=== PATIENT | female | born 1935 | race Caucasian/White ===

== ENCOUNTER 2017-05-30 11:22 | Outpatient (CLI) | payer MEDICARE, OTHER ==
--- NOTE | 2017-05-31 17:39 | Mammography Report ---
DIGITAL SCREENING MAMMOGRAM: 05/30/2017 CLINICAL INDICATION: An 81-year-old with family history of breast cancer for screening. COMPARISON: 04/2016, 03/2015, 03/2014, 02/2013, 02/2012, 12/2010, 12/2009, 11/2008, 10/2008. TECHNIQUE: Routine CC and MLO projections were obtained of the breasts. FINDINGS: The breasts again demonstrate heterogeneously dense fibroglandular parenchyma bilaterally. Punctate, typically benign calcifications are present. There is a shifting pattern of circumscribe d nodules bilaterally, compatible with waxing and waning cysts. No suspicious masses, clustered micr ocalcifications, or regions of architectural distortion are identified. IMPRESSION: BENIGN FINDINGS. RECOMMENDATION: Routine annual screening unless otherwise clinically indicated. BI-RADS category 2, benign findings. STANDARD QUALIFYING STATEMENTS 1. This examination was reviewed with the aid of Computer-Aided Detection (CAD). 2. A negative or benign imaging report should not delay biopsy if clinically suspicious findings are present. Consider surgical consultation if warranted. More than 5% of cancers are not identified by i maging. 3. Dense breasts may obscure an underlying neoplasm. JOB #: [id number] EXT JOB #:[id number]
== END 2017-05-30 11:23 | disposition home or self-care (01) ==
LOC: DI.N 11:22
PROVIDERS: ATTEND Specialist
DX: Z12.31 Encounter for screening mammogram for malignant neoplasm of breast (principal)
CPT/HCPCS: 77067

== ENCOUNTER 2017-06-11 08:43 | Outpatient (CLI) | payer MEDICARE, OTHER ==
--- NOTE | 2017-06-11 20:07 | Ultrasound Report ---
EXAM: AORTIC DOPPLER ULTRASOUND EXAM DATE: 06/11/2017 09:12 a.m. CLINICAL HISTORY: Abdominal aortic aneurysm screening. Former smoker. History of hypertension, COPD, TIA. COMPARISON: CT abdomen/pelvis 03/27/2008. TECHNIQUE: Real-time sonographic imaging of retroperitoneal vascular structures, including color-flow , Doppler flow and spectral analysis was performed by the quality audit representative. Multiple logistics service representative static images were saved for review. FINDINGS: Normal caliber of the abdominal aorta. Calcified atherosclerotic plaque visualized. Aorta proximal: Transverse plane measurements: 1.7 x 1.8 cm. Aorta mid: Transverse plane measurements: 1.4 X 1.4 cm. Aorta distal: Transverse plane measurements: 1.2 X 1.1 cm. Right iliac: Transverse plane measurements: 0.6 X 0.6 cm. Left iliac: Transverse plane measurements: 0.6 X 0.6 cm. Doppler: Prox Aorta PSV: 67 cm/sec. Mid Aorta PSV: 72 cm/sec. Dist Aorta PSV: 95 cm/sec. Proximal RCIA PSV: 151 cm/sec, biphasic waveform. Proximal LCIA PSV: 165 cm/sec, biphasic waveform. Other: The IVC is patent. IMPRESSION: No abdominal aortic aneurysm. [facility] Referring Provider Line: [phone] SITE ID: [id number]
== END 2017-06-11 08:44 | disposition home or self-care (01) ==
LOC: DI 08:43
PROVIDERS: ATTEND Specialist
DX: Z13.6 Encounter for screening for cardiovascular disorders (principal)
CPT/HCPCS: 76706

== ENCOUNTER 2017-06-11 08:45 | Outpatient (CLI) | payer MEDICARE, OTHER ==
--- NOTE | 2017-06-11 20:57 | CT Report ---
EXAM: CT CHEST EXAM DATE: 06/11/2017 10:39 AM. CLINICAL HISTORY: COPD. COMPARISONS: None. TECHNIQUE: Routine helical CT imaging was performed through the chest. IV contrast: None. Reconstruct ions: Coronal and sagittal. In accordance with CT protocol optimization, one or more of the following dose reduction techniques w ere utilized for this exam: automated exposure control, adjustment of mA and/or KV based on patient s ize, or use of iterative reconstructive technique. FINDINGS: Lungs/Pleura: No effusions. Mild bronchiectasis. Airways wall thickening. Severe centrilobular and pa nlobular emphysema. Small amount of fibrotic change at the bases. Calcified pulmonary nodule in the m edial segment right lower lobe consistent with prior granulomatous infection. Possible small airway i mpaction in the superior segment right lower lobe. Mediastinum: Small amount of coronary artery atherosclerotic calcifications. Heart is normal in size. No pericardial effusion. No mediastinal lymphadenopathy. Calcified right hilar and mediastinal lymph nodes consistent with prior granulomatous infection. Bones: Thoracic spondylosis changes with lower thoracic levocurvature. Severe cervical spondylosis an d upper thoracic spondylosis. Visualized Abdomen: Low attenuating lesion in segment 5 measures less than 1 cm and is too small to c haracterize. Low attenuating lesion in segment 4B measures less than 1 cm and is too small to charact erize. Fluid attenuating cyst in segment 4A measuring 1.1 cm. Calcifications in the spleen consistent with prior granulomatous infection. Moderate pancreatic atrophy. Colonic diverticulosis. Large slidi ng-type hiatal hernia. Most of the stomach is herniated through the esophageal hiatus. Other: None. IMPRESSION: 1. Severe emphysema 2. Mild bronchiectasis [facility] Referring Provider Line: [phone] SITE ID: [id number]
== END 2017-06-11 08:46 | disposition home or self-care (01) ==
LOC: DI 08:45
PROVIDERS: ATTEND Specialist
DX: J43.9 Emphysema, unspecified (principal); J47.9 Bronchiectasis, uncomplicated; Z13.6 Encounter for screening for cardiovascular disorders
CPT/HCPCS: 71250; 76706

== ENCOUNTER 2017-07-03 09:11 | Outpatient (CLI) | payer MEDICARE, OTHER ==
[2017-07-03] MEDS ORDERED: ALBUTEROL NEB 2.5 MG/3 ML INH ONE (11:00)
== END 2017-07-03 09:12 | disposition home or self-care (01) ==
LOC: RT 09:11
PROVIDERS: ATTEND Physician Assistant
DX: R06.00 Dyspnea, unspecified (principal); J44.9 Chronic obstructive pulmonary disease, unspecified; Z87.891 Personal history of nicotine dependence
CPT/HCPCS: 93005; 94060; 94729; J7613

== ENCOUNTER 2017-12-22 14:30 | Outpatient (CLI) | payer MEDICARE, OTHER ==
--- NOTE | 2017-12-22 18:50 | XRAY Report ---
TWO VIEW CHEST: 12/22/2017 CLINICAL INDICATION: COPD, abnormal weight loss. COMPARISON: CT chest 06/11/2017, plain film 12/27/2015. FINDINGS: Frontal and lateral views of the chest demonstrate a normal cardiac silhouette. A moderate hiatal hernia is present. Extensive emphysema is present. No suspicious pulmonary nodule or mass lesion is seen. No effusion or pneumothorax is appreciated. IMPRESSION: EMPHYSEMA. HIATAL HERNIA. NO SUSPICIOUS PULMONARY NODULE OR MASS LESION. TD: 12/22/2017 18:49
== END 2017-12-22 14:31 | disposition home or self-care (01) ==
LOC: DI.N 14:30
PROVIDERS: ATTEND Family Medicine
DX: J43.9 Emphysema, unspecified (principal); K44.9 Diaphragmatic hernia without obstruction or gangrene
CPT/HCPCS: 71046

== ENCOUNTER 2018-06-28 09:31 | Outpatient (CLI) | payer MEDICARE, OTHER ==
--- NOTE | 2018-06-29 09:18 | Mammography Report ---
Procedure Date: 06/28/2018 Accession Number: [id number] / [id number] Procedure: MGN - Screening Mammo Dig Bilat CPT Code: FULL RESULT: EXAM: Screening Mammo Dig Bilat DATE: 06/28/2018 9:58 AM CLINICAL HISTORY: Family history of breast cancer. Routine screening TECHNIQUE: Bilateral CC and MLO views were obtained. COMPARISON: 05/30/2017, 05/04/2016, 04/02/2015, 03/18/2014, 02/27/2013 and 02/21/2012 FINDINGS: There are scattered fibroglandular densities. There is no significant interval change. No suspicious masses, clustered microcalcifications, or regions of architectural distortion are identified. Shifting pattern of circumscribed nodules bilaterally again noted, compatible with waxing and waning cysts. IMPRESSION: Benign findings RECOMMENDATION: Routine annual screening unless otherwise clinically indicated. BIRADS CATEGORY 2: Benign findings STANDARD QUALIFYING STATEMENTS: 1. This examination was reviewed with the aid of Computer-Aided Detection (CAD). 2. A negative or benign imaging report should not delay biopsy if clinically suspicious findings are present. Consider surgical consultation if warrented. More than 5% of cancers are not identified by imaging. 3. Dense breasts may obscure an underlying neoplasm.
== END 2018-06-28 09:32 | disposition home or self-care (01) ==
LOC: DI.N 09:31
PROVIDERS: ATTEND Family Medicine
DX: Z12.31 Encounter for screening mammogram for malignant neoplasm of breast (principal)
CPT/HCPCS: 77067

== ENCOUNTER 2019-07-19 10:06 | Outpatient (CLI) | payer MEDICARE, OTHER ==
--- NOTE | 2019-07-23 16:19 | Mammography Report ---
Reason: SCREENING MAMMO, SISTER WITH BREAST CA Procedure Date: 07/19/2019 Accession Number: [id number] / [id number] Procedure: MGN - Screening Mammo Dig Bilat CPT Code: FULL RESULT: EXAM: Screening Mammo Dig Bilat DATE: 07/19/2019 10:28 AM CLINICAL HISTORY: Routine screening, sister with breast cancer. TECHNIQUE: (B) - Bilateral CC and MLO views were obtained. COMPARISON: 06/28/2018, 05/30/2017, 05/04/2016 and 04/02/2015 PARENCHYMAL PATTERN: (D) - The breasts demonstrate heterogeneously dense fibroglandular parenchyma bilaterally. FINDINGS: No significant interval change. There are no suspicious masses, calcifications, or areas of distortion. A subcentimeter nodule in the 9:00 position right breast approximately 2.5 cm from the nipple is stable. IMPRESSION: Benign findings. BI-RADS category 2. RECOMMENDATION: (ANNUAL) - Recommend routine annual screening mammography. BI-RADS CATEGORY: (2) - Benign Findings. STANDARD QUALIFYING STATEMENTS: 1. This examination was not reviewed with the aid of Computer-Aided Detection (CAD). 2. A negative or benign imaging report should not preclude biopsy if clinically suspicious findings are present. 3. Dense breasts may obscure an underlying neoplasm. 4. This examination was reviewed without the aid of 3D breast imaging (tomosynthesis).
== END 2019-07-19 10:07 | disposition home or self-care (01) ==
LOC: DI.N 10:06
DX: Z12.31 Encounter for screening mammogram for malignant neoplasm of breast (principal); Z80.3 Family history of malignant neoplasm of breast
CPT/HCPCS: 77067

== ENCOUNTER 2021-02-21 11:33 | Emergency (ER) | payer MEDICARE, OTHER ==
[2021-02-21] MEDS ORDERED: METOCLOPRAMIDE 10 MG/2 ML VIAL IVP STA (11:51)
--- NOTE | 2021-02-21 11:54 | ED Physician Documentation ---
PD HPI FOCAL NEURO - Stated complaint Stated Complaint: MIGRAINES - Chief complaint Chief Complaint: Neuro - History obtained from History obtained from: Patient - Additional information Additional information: This is a vijay 85-year-old woman with history of migraines. She has had a fairly typical migraine since yesterday although what is atypical is how long it is lasted. Usually after a few hours and just taking Tylenol her migraines go away. It started yesterday with left-sided scotomata like a "zigzag" in her vision. Then developed a right-sided throbbing headache. There is no associ ated fevers, chills, neck stiffness. No nausea or light sensitivity. Review of Systems Constitutional: reports: Reviewed and negative Eyes: reports: Reviewed and negative Ears: reports: Reviewed and negative Nose: reports: Reviewed and negative PD PAST MEDICAL HISTORY - Past Medical History Cardiovascular: Hypertension Respiratory: COPD Endocrine/Autoimmune: HyPOthyroidism GI: GERD HEENT: None Psych: None Musculoskeletal: Osteoarthritis, Osteoporosis - Past Surgical History Past Surgical History: Yes General: Colonoscopy Ortho: Knee replacement HEENT: Cataracts Derm: Skin cancer surgery - Present Medications Home Medications: Ambulatory Orders Medication Instructions Recorded Confirmed Alendronate Sodium [Fosamax] 70 mg PO 09/08/13 12/27/15 Levothyroxine Sodium [Levothroid] 50 mcg PO DAILY 09/08/13 12/27/15 Simvastatin [Zocor] 20 mg PO HS 09/08/13 12/27/15 Verapamil HCl [Verelan] 120 mg PO DAILY 09/08/13 12/27/15 Clopidogrel [Plavix] 75 mg 12/27/15 12/27/15 Azithromycin [Zithromax] 250 mg PO DAILY #6 tablet 10/21/16 Meclizine [Antivert] 25 mg PO Q6H PRN #20 tablet 10/21/16 Ondansetron Odt [Zofran] 4 mg TL Q6H PRN #10 tablet 10/21/16 Mometasone Furoate [Nasonex] 1 spray NS BID #1 ml 02/21/21 SUMAtriptan [Imitrex] 25 mg PO BID PRN #10 tablet 02/21/21 - Allergies Allergies/Adverse Reactions: Allergies Allergy/AdvReac Type Severity Reaction Status Date / Time Sulfa (Sulfonamide Allergy Rash Verified 02/21/21 11:51 Antibiotics) - Social History Does the pt smoke?: No Smoking Status: Former smoker Does the pt drink ETOH?: No Does the pt have substance abuse?: No - Immunizations Immunizations are current?: Yes - POLST Patient has POLST: No PD ED PE NORMAL - Vitals Vital signs reviewed: Yes - General General: Alert and oriented X 3, No acute distress - HEENT HEENT: PERRL, EOMI, Other (No temporal artery tenderness, in fact she states bradley t it feels better when I am rubbing her temples.) - Neck Neck: Supple, no meningeal sign, No bony TTP - Neuro Neuro: Alert and oriented X 3, 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 The history is not consistent with temporal arteritis/giant cell arteritis. Nor is the physical. CT was done given her advanced age, suggestive of left sphenoid sinusitis. She has had a runny nose but no congestion, purulent drainage or fevers. As such I think antibiotics more likely to Harm than help. She was pain-free after IV Reglan here. 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 In the interim, return anytime if worse or if new symptoms develop.
--- NOTE | 2021-02-21 12:48 | CT Report ---
PROCEDURE: HEAD WO INDICATIONS: headache TECHNIQUE: Noncontrast 4.5 mm thick angled axial sections acquired from the foramen magnum to the vertex. For r adiation dose reduction, the following was used: automated exposure control, adjustment of mA and/or kV according to patient size. COMPARISON: None. FINDINGS: Image quality: Mild motion artifact somewhat limits evaluation. CSF spaces: Ventricles and extra-axial CSF spaces are mildly prominent consistent with age-related at rophy and extra-axial dilatation. Brain: No midline shift. No intracranial masses or hemorrhage. There is diffuse periventricular and white matter hypoattenuation with regions of encephalomalacia/remote infarct throughout the right pa rietal and posterior frontal reynolds radiata and centrum semiovale. Skull and face: Calvarium and visualized facial bones are intact, without suspicious lesions. Sinuses: Frothy attenuation and air fluid level is noted within the left sphenoid sinus. IMPRESSION: Chronic changes including diffuse microvascular ischemic changes and cerebral volume loss without maxwell dence of acute transcortical infarction or intracranial hemorrhage. Findings suggestive of acute sinusitis within the left sphenoid sinus. Reviewed by: Robi Tipton DO on 02/21/2021 11:47 AM GABBIE Approved by: Robi Tipton DO on 02/21/2021 11:47 AM GABBIE Station ID: [id number]
[2021-02-21 13:13] VITALS: BP 155/80
== END 2021-02-21 13:11 | disposition home or self-care (01) ==
LOC: ED 11:33
DX: G44.039 Episodic paroxysmal hemicrania, not intractable (principal); J01.30 Acute sphenoidal sinusitis, unspecified; I10 Essential (primary) hypertension; Z87.891 Personal history of nicotine dependence
CPT/HCPCS: 70450; 96374; 99284; J2765

== ENCOUNTER 2021-05-21 10:05 | Emergency (ER) | payer MEDICARE, OTHER ==
--- NOTE | 2021-05-21 12:05 | ED Physician Documentation ---
History of Present Illness - Stated complaint Stated Complaint: FOREIGN OBJECT IN THROAT - Chief complaint Chief Complaint: Abd Pain - History obtained from History obtained from: Patient, Friend - History of Present Illness Timing: Last night - Additonal information Additional information: 85-year-old female with a history of reflux esophagitis has had food get stuck previously she is always had a resolve by morning and she has been choking on her secretions all night long. She ate some pork last night and it got stuck then and she has been having to spit up her secretions.She has never had a dilation done and she has had problems with this for years.She has never had it last overnight previously. Review of Systems Constitutional: denies: Fever Eyes: denies: Decreased vision, Photophobia Ears: denies: Ear pain Nose: denies: Congestion Throat: denies: Sore throat Cardiac: denies: Chest pain / pressure Respiratory: denies: Cough GI: reports: Vomiting (Secretions are coming up.). denies: Abdominal Pain, Nausea : denies: Dysuria Skin: denies: Rash Musculoskeletal: denies: Neck pain, Back pain, Extremity pain Neurologic: denies: Generalized weakness, Focal weakness, Numbness, Difficulty speaking PD PAST MEDICAL HISTORY - Past Medical History Past Medical History: Yes Cardiovascular: Hypertension Respiratory: COPD Neuro: Migraines Endocrine/Autoimmune: HyPOthyroidism GI: GERD HEENT: None Psych: None Musculoskeletal: Osteoarthritis, Osteoporosis Other Past Medical History: swallowing difficulties - Past Surgical History Past Surgical History: Yes General: Colonoscopy Ortho: Knee replacement HEENT: Cataracts Derm: Skin cancer surgery - Present Medications Home Medications: Ambulatory Orders Medication Instructions Recorded Confirmed Alendronate Sodium [Fosamax] 70 mg PO 09/08/13 12/27/15 Levothyroxine Sodium [Levothroid] 50 mcg PO DAILY 09/08/13 12/27/15 Simvastatin [Zocor] 20 mg PO HS 09/08/13 12/27/15 Verapamil HCl [Verelan] 120 mg PO DAILY 09/08/13 12/27/15 Clopidogrel [Plavix] 75 mg 12/27/15 12/27/15 Azithromycin [Zithromax] 250 mg PO DAILY #6 tablet 10/21/16 Meclizine [Antivert] 25 mg PO Q6H PRN #20 tablet 10/21/16 Ondansetron Odt [Zofran] 4 mg TL Q6H PRN #10 tablet 10/21/16 Mometasone Furoate [Nasonex] 1 spray NS BID #1 ml 02/21/21 SUMAtriptan [Imitrex] 25 mg PO BID PRN #10 tablet 02/21/21 - Allergies Allergies/Adverse Reactions: Allergies Allergy/AdvReac Type Severity Reaction Status Date / Time Sulfa (Sulfonamide Allergy Rash Verified 05/21/21 10:18 Antibiotics) - Social History Does the pt smoke?: No Smoking Status: Never smoker Does the pt drink ETOH?: No Does the pt have substance abuse?: No - Immunizations Immunizations are current?: Yes - POLST Patient has POLST: No PD ED PE NORMAL - Vitals Vital signs reviewed: Yes (Tachycardic and hypertensive) - General General: Alert and oriented X 3, No acute distress, Well developed/nourished - HEENT HEENT: Atraumatic, PERRL, EOMI - Neck Neck: Supple, no meningeal sign, No bony TTP - Cardiac Cardiac: RRR, No murmur - Respiratory Respiratory: No respiratory distress, Clear bilaterally - Abdomen Abdomen: Normal bowel sounds, Soft, Non tender, Non distended, No organomegaly - Back Back: No CVA TTP, No spinal TTP - Derm Derm: Normal color, Warm and dry, No rash - Extremities Extremities: No deformity, No edema - Neuro Neuro: Alert and oriented X 3, 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, No motor deficit, No sensory deficit, Normal speech Eye Opening: Spontaneous Motor: Obeys Commands Verbal: Oriented GCS Score: 15 - Psych Psych: Normal mood, Normal affect Results - Vitals Vitals: Vital Signs - 24 hr 05/21/21 05/21/21 10:12 11:00 Temperature 36.6 C Heart Rate 110 H 90 Respiratory 16 Rate Blood Pressure 167/80 H O2 Saturation 98 Oxygen O2 Source [With Activity] Room air O2 Source [Without Activity] Room air O2 Source Room air PD MEDICAL DECISION MAKING - ED course Complexity details: considered differential, d/w patient, d/w family ED course: 85-year-old female with esophageal foreign body impaction lasting overnight appears uncomfortable when she arrives to the emergency department and she has been spitting up her secretions all night long. Here in the emergency department she is given a sip of a diet lemon igiugig soda with a lot of carbonation following that she has some increase in pain in her central chest and then has resolution of her symptoms. She is able to drink freely.I have encouraged the patient to seek consultation with GI to consider dilation. She is a bit reluctant. Departure - Departure Disposition: 01 Home, Self Care Clinical Impression: Impacted foreign body in esophagus Qualifiers: Encounter type: initial encounter Qualified Code(s): T18.108A - Unspecified foreign body in esophagus causing other injury, initial encounter Condition: Stable Instructions: ED Foreign Body Esophageal Rslv Follow-Up: Tenzin Su DO [Primary Care Provider] - Comments: Follow-up with Dr. Su regarding your symptoms of esophageal foreign body. A procedure done by a deputy sheriff generalist/bailiff is available to help with the symptoms. Talk to Dr. Su about a referral to gastroenterology.
[2021-05-21 12:48] VITALS: BP 155/80
== END 2021-05-21 12:48 | disposition home or self-care (01) ==
LOC: ED 10:05
DX: T18.108A Unspecified foreign body in esophagus causing other injury, initial encounter (principal); X58.XXXA Exposure to other specified factors, initial encounter; Y93.89 Activity, other specified; I10 Essential (primary) hypertension
CPT/HCPCS: 36415; 99281; 99282

== ENCOUNTER 2021-11-18 22:41 | Emergency (ER) | payer MEDICARE, OTHER ==
[2021-11-18] MEDS ORDERED: GLUCAGON 1 MG/ML VIAL IVP STA (22:55)
--- NOTE | 2021-11-18 23:06 | ED Physician Documentation ---
History of Present Illness - Stated complaint Stated Complaint: CHEST PX, VOMITING - History obtained from History obtained from: Patient - Additonal information Additional information: 85-year-old woman with past medical history of esophageal foreign body presents with sensation of the same tonight. Patient states that she turkey for dinner around 4 PM and since that time has had feeling of bolus in the throat deep down in the chest, inability to swallow liquids or solids, and vomiting every time she tries to eat. Denies nausea, diaphoresis, dizziness or other symptoms. Pain is generalized to the chest area. Denies shortness of breath. Review of Systems Ten Systems: 10 systems reviewed and negative Constitutional: denies: Fever, Chills Cardiac: reports: Chest pain / pressure. denies: Palpitations Respiratory: denies: Dyspnea, Cough GI: reports: Vomiting. denies: Abdominal Pain, Nausea PD PAST MEDICAL HISTORY - Past Medical History Cardiovascular: Hypertension Respiratory: COPD Neuro: Migraines Endocrine/Autoimmune: HyPOthyroidism GI: GERD HEENT: None Psych: None Musculoskeletal: Osteoarthritis, Osteoporosis - Past Surgical History Past Surgical History: Yes General: Colonoscopy Ortho: Knee replacement HEENT: Cataracts Derm: Skin cancer surgery - Present Medications Home Medications: Ambulatory Orders Medication Instructions Recorded Confirmed Levothyroxine Sodium [Levothroid] 50 mcg PO DAILY 09/08/13 05/21/21 Verapamil HCl [Verelan] 120 mg PO DAILY 09/08/13 05/21/21 Ascorbic Acid [Vitamin C] 1 tab DAILY 05/21/21 05/21/21 Aspirin [[place] Aspirin] 1 tab DAILY 05/21/21 05/21/21 Atorvastatin [Lipitor] 1 tab DAILY 05/21/21 05/21/21 Lisinopril [Zestril] 10 mg DAILY 05/21/21 05/21/21 Temazepam [Restoril] 30 mg DAILY 05/21/21 05/21/21 Tiotropium [place] [Spiriva] 1 cap DAILY 05/21/21 05/21/21 - Allergies Allergies/Adverse Reactions: Allergies Allergy/AdvReac Type Severity Reaction Status Date / Time Sulfa (Sulfonamide Allergy Rash Verified 05/21/21 10:18 Antibiotics) - Social History Does the pt smoke?: No Smoking Status: Never smoker Does the pt drink ETOH?: No Does the pt have substance abuse?: No - Immunizations Immunizations are current?: Yes - POLST Patient has POLST: No PD ED PE NORMAL - Vitals Vital signs reviewed: Yes - General General: Alert and oriented X 3, No acute distress, Well developed/nourished - HEENT HEENT: Atraumatic, PERRL, EOMI, Moist mucous membranes - Neck Neck: Supple, no meningeal sign - Cardiac Cardiac: RRR - Respiratory Respiratory: No respiratory distress, Clear bilaterally - Abdomen Abdomen: Non tender, Non distended - Derm Derm: Normal color, Warm and dry - Extremities Extremities: No deformity - Neuro Neuro: Alert and oriented X 3, No motor deficit, No sensory deficit - Psych Psych: Normal mood, Normal affect Results - Vitals Vitals: Vital Signs - 24 hr 11/18/21 11/18/21 11/19/21 22:45 23:39 00:00 Temperature 37 C Heart Rate 89 97 96 Respiratory 17 25 H 19 Rate Blood Pressure 176/76 H 192/93 H 135/58 H O2 Saturation 98 93 94 11/19/21 01:00 Temperature Heart Rate 86 Respiratory 21 Rate Blood Pressure 138/82 H O2 Saturation 93 Oxygen O2 Source [] Room air O2 Source [] Room air O2 Source Room air - EKG (time done) 2251 Rate: Rate (enter#) (93) Rhythm: NSR [place]: Normal Intervals: Normal [place] QRS: Normal Ischemia: Normal ST segments - Labs Labs: Laboratory Tests 11/18/21 11/18/21 11/18/21 22:58 22:58 22:58 WBC 9.8 RBC 4.83 Hgb 14.5 Hct 43.8 MCV 90.7 MCH 30.0 MCHC 33.1 RDW 14.6 Plt Count 365 MPV 9.6 Neut # (Auto) 7.2 H Lymph # (Auto) 1.5 [place] # (Auto) 1.0 Eos # (Auto) 0.1 Baso # (Auto) 0.1 Absolute Nucleated RBC 0.00 Nucleated RBC % 0.0 Sodium 135 Potassium 4.4 Chloride 100 L Carbon Dioxide 22 Anion Gap 13.0 BUN 18 Creatinine 1.0 Estimated GFR (MDRD) 53 L Glucose 131 H Calcium 9.8 Total Bilirubin 0.6 AST 30 ALT 25 Alkaline Phosphatase 82 Troponin I High Sens 4.8 Total Protein 8.0 Albumin 4.3 Globulin 3.7 Albumin/Globulin Ratio 1.2 Lipase 67 H PD MEDICAL DECISION MAKING - ED course ED course: 85-year-old woman presents with esophageal foreign body. Will trial glucagon, [employer]OCK[employer], soda which has worked for her in the past. 12pm - patient now tolerating oral nano. she initially spit up and had streaks of blood per manager staffing but is now pain free and sipping cola without difficulty. 2am - apparently patient spit up a small amount of cola but then was able to keep down a cup of water. she states her symptoms have now resolved and is requesting to go home. return precautions given. patient should f/u with her pmd for referral for possible endoscopy. Departure - Departure Disposition: 01 Home, Self Care Clinical Impression: Foreign body sensation in throat, Chest discomfort Condition: Good Instructions: ED Foreign Body Esophageal Rslv Follow-Up: Donn Ordoñez MD [Provider Admit Priv/Credential] - Comments: You were seen in the ED for evaluation of chest and throat discomfort. Glad you are feeling better! Please follow up with your primary doctor for referral for endoscopy. I am also enclosing a referral to Dr. Ordoñez, a surgeon here at [facility] who can do endoscopies. Depending on your insurance, you may be able to see her directly. Please return to the emergency department if you have further troubles with swallowing, or have any new or worsening symptoms or other concerns.
[2021-11-18 23:07] LABS: BASOPHILS # (AUTO) 0.1 10^3/uL (0.0-0.1); BASOPHILS % (AUTO) 0.6 %; EOSINOPHILS # (AUTO) 0.1 10^3/uL (0.0-0.7); EOSINOPHILS % (AUTO) 1.2 %; HCT - HEMATOCRIT 43.8 % (37.0-47.0); HGB - HEMOGLOBIN 14.5 g/dL (12.0-16.0); LYMPHOCYTES # (AUTO) 1.5 10^3/uL (1.5-3.5); LYMPHOCYTES % (AUTO) 14.8 %; MEAN CORPUSCULAR HGB CONC 33.1 g/dL (32.0-36.0); MEAN CORPUSCULAR VOLUME 90.7 fL (81.0-99.0); MEAN PLATELET VOLUME 9.6 fL (7.9-10.8); MONOCYTES % (AUTO) 10.2 %; NEUTROPHILS # (AUTO) 7.2 10^3/uL (1.5-6.6); NEUTROPHILS % (AUTO) 72.7 %; PLT - PLATELET COUNT 365 10^3/uL (130-450); RED BLOOD COUNT 4.83 10^6/uL (4.20-5.40); RED CELL DISTRIBUTION WIDTH 14.6 % (12.0-15.0); WHITE BLOOD COUNT 9.8 x10^3/uL (4.8-10.8)
--- NOTE | 2021-11-18 23:23 | XRAY Report ---
PROCEDURE: Chest 1 View X-Ray INDICATIONS: Chest Pain TECHNIQUE: One view of the chest was acquired. COMPARISON: 12/22/2017 FINDINGS: Surgical changes and devices: None. Lungs and pleura: Stable appearance of chronic diffuse interstitial coarsening likely related to chr onic obstructive pulmonary physiology/emphysema. No pleural effusions or pneumothorax. Lungs are quoc ar without focal airspace disease. Mediastinum: Mediastinal contours appear normal. Heart size is normal. Bones and chest wall: No suspicious bony lesions. Overlying soft tissues appear unremarkable. IMPRESSION: Stable examination of the chest. No acute cardiopulmonary abnormalities. Findings compatible with chr onic obstructive pulmonary physiology/emphysema. Reviewed by: Atul Campos MD on 11/18/2021 11:22 PM [facility] Approved by: Atul Campos MD on 11/18/2021 11:22 PM [facility] Station ID: [id number]
[2021-11-18 23:48] LABS: ALBUMIN 4.3 g/dL (3.2-5.5); ALBUMIN/GLOBULIN RATIO 1.2 (1.0-2.2); BILIRUBIN,TOTAL 0.6 mg/dL (0.2-1.0); CALCIUM 9.8 mg/dL (8.5-10.3); POTASSIUM 4.4 mmol/L (3.5-5.0)
[2021-11-19 02:09] VITALS: BP 138/75
== END 2021-11-19 02:29 | disposition home or self-care (01) ==
LOC: ED 22:41
DX: R09.89 Other specified symptoms and signs involving the circulatory and respiratory systems (principal); R07.89 Other chest pain; I10 Essential (primary) hypertension
CPT/HCPCS: 36415; 80053; 83690; 84484; 85025; 93005; 96374; 99284

== ENCOUNTER 2022-11-10 08:00 | Outpatient (CLI) | payer MEDICARE, OTHER | END 2022-11-10 23:59 | disposition home or self-care (01) | LOC: LAB.N 08:00 | PROVIDERS: ATTEND Physician Assistant | DX: R41.0 Disorientation, unspecified (principal) | CPT/HCPCS: 87086 ==

== ENCOUNTER 2022-11-29 08:07 | Outpatient (CLI) | payer MEDICARE, OTHER | END 2022-11-29 08:08 | disposition EMS.NT | LOC: EMS 08:07 | DX: R41.0 Disorientation, unspecified (principal) ==

== ENCOUNTER 2023-08-23 07:36 | Outpatient (CLI) | payer MEDICARE, OTHER | END 2023-08-23 23:59 | disposition critical access hospital (66) | LOC: EMS 07:36 | DX: R44.1 Visual hallucinations (principal) | CPT/HCPCS: A0425; A0429 ==

== ENCOUNTER 2023-08-23 07:55 | Emergency (ER) | payer MEDICARE, OTHER ==
--- NOTE | 2023-08-23 08:08 | ED Physician Documentation ---
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 Patient states that she saw people who were not there all throughout her house and it caused her to not be able to get any sleep. This morning she decided to call 911. EMS reports vital signs were within normal limits in route. Patient states she is currently taking Cipro for a urinary tract infection, but denies recent burning with urination or frequency. She states that "it was my son's idea" for her to be treated for urinary tract infection. She does not know how many days she has been on antibiotics. Denies pain. Review of Systems Constitutional: denies: Fever, Chills PD PAST MEDICAL HISTORY - Past Medical History Cardiovascular: Hypertension Respiratory: COPD Neuro: Migraines Endocrine/Autoimmune: HyPOthyroidism GI: GERD HEENT: None Psych: None Musculoskeletal: Osteoarthritis, Osteoporosis - Past Surgical History Past Surgical History: Yes General: Colonoscopy Ortho: Knee replacement HEENT: Cataracts Derm: Skin cancer surgery - Present Medications Home Medications: Ambulatory Orders Medication Instructions Recorded Confirmed Levothyroxine Sodium [Levothroid] 50 mcg PO DAILY 09/08/13 05/21/21 Verapamil HCl [Verelan] 120 mg PO DAILY 09/08/13 05/21/21 Ascorbic Acid [Vitamin C] 1 tab DAILY 05/21/21 05/21/21 Aspirin [[place] Aspirin] 1 tab DAILY 05/21/21 05/21/21 Atorvastatin [Lipitor] 1 tab DAILY 05/21/21 05/21/21 Lisinopril [Zestril] 10 mg DAILY 05/21/21 05/21/21 Temazepam [Restoril] 30 mg DAILY 05/21/21 05/21/21 Tiotropium [place] [Spiriva] 1 cap DAILY 05/21/21 05/21/21 - Allergies Allergies/Adverse Reactions: Allergies Allergy/AdvReac Type Severity Reaction Status Date / Time Sulfa (Sulfonamide Allergy Rash Verified 05/21/21 10:18 Antibiotics) - Social History Does the pt smoke?: No Smoking Status: Never smoker Does the pt drink ETOH?: No Does the pt have substance abuse?: No - Immunizations Immunizations are current?: Yes - POLST Patient has POLST: No Results - Vitals Vitals: Vital Signs - 24 hr 08/23/23 08:02 Temperature 36.4 C L Heart Rate 105 H Respiratory 28 H Rate Blood Pressure 195/99 H O2 Saturation 95 Oxygen O2 Source [With Activity] Room air O2 Source [Without Activity] Room air O2 Source Room air - Labs Labs: Laboratory Tests 08/23/23 08/23/23 08/23/23 08:13 08:13 08:13 WBC 7.6 RBC 4.46 Hgb 13.5 Hct 41.7 MCV 93.5 MCH 30.3 MCHC 32.4 RDW 14.6 Plt Count 295 MPV 9.9 Neut # (Auto) 4.5 Lymph # (Auto) 1.7 [place] # (Auto) 1.1 H Eos # (Auto) 0.2 Baso # (Auto) 0.1 Absolute Nucleated RBC 0.00 Nucleated RBC % 0.0 PT 10.6 INR 1.0 Sodium 138 Potassium 3.8 Chloride 107 Carbon Dioxide 25 Anion Gap 6.0 BUN 22 H Creatinine 1.1 Estimated GFR (MDRD) 47 L Glucose 96 Calcium 9.4 Total Bilirubin 0.4 AST 25 ALT 17 Alkaline Phosphatase 67 Total Protein 7.1 Albumin 4.0 Globulin 3.1 Albumin/Globulin Ratio 1.3 Urine Color Urine Clarity Urine pH Ur Specific [place] Urine Protein Urine Glucose (UA) Urine Ketones Urine Occult Blood Urine Nitrite Urine Bilirubin Urine Urobilinogen Ur Leukocyte Esterase Ur Microscopic Review Urine Culture Comments 08/23/23 08:57 WBC RBC Hgb Hct MCV MCH MCHC RDW Plt Count MPV Neut # (Auto) Lymph # (Auto) [place] # (Auto) Eos # (Auto) Baso # (Auto) Absolute Nucleated RBC Nucleated RBC % PT INR Sodium Potassium Chloride Carbon Dioxide Anion Gap BUN Creatinine Estimated GFR (MDRD) Glucose Calcium Total Bilirubin AST ALT Alkaline Phosphatase Total Protein Albumin Globulin Albumin/Globulin Ratio Urine Color YELLOW Urine Clarity CLEAR Urine pH 6.0 Ur Specific [place] 1.015 Urine Protein NEGATIVE Urine Glucose (UA) NEGATIVE Urine Ketones NEGATIVE Urine Occult Blood TRACE-INTA Urine Nitrite NEGATIVE Urine Bilirubin NEGATIVE Urine Urobilinogen 0.2 (NORMAL) Ur Leukocyte Esterase NEGATIVE Ur Microscopic Review NOT INDICATED Urine Culture Comments NOT INDICATED PD Medical Decision Making - ED course Complexity details: reviewed old records, reviewed results, re-evaluated patient, considered differential, d/w patient, d/w family ED course: Possible altered mental status and visual hallucinations. Patient denying any complaints at this time. I discussed patient's case with her son Jason, who states that at least once a year the patient gets a urinary tract infection and has to be admitted for IV antibiotics. He states that patient also has mild Alzheimer's disease that is gradually getting worse with more frequent outbursts ("like a kid you can't ground"). Patient at this time is calm and cooperative. Laboratory work is reviewed, no abnormalities identified. CT shows no acute findings, chest x-ray negative for acute process. Urinalysis negative for leukocyte esterase, nitrates, bacteria. Patient hemodynamically stable in the emergency department. Son states that "the test is wrong", and states that the urinary tract infection only shows up when the urine is cultured. I explained that the urine is negative for anything that would indicate a culture. He states that he is upset that the patient was brought to [facility] and not [facility], because [place] has all of her records. I explained that there is no indication for admission at this time. Discharged to care of son. Departure - Departure Disposition: 01 Home, Self Care Clinical Impression: Alzheimer disease Condition: Stable Instructions: ED Dementia Caregiver Support
[2023-08-23 08:20] LABS: BASOPHILS # (AUTO) 0.1 10^3/uL (0.0-0.1); BASOPHILS % (AUTO) 0.8 %; EOSINOPHILS # (AUTO) 0.2 10^3/uL (0.0-0.7); EOSINOPHILS % (AUTO) 2.6 %; HCT - HEMATOCRIT 41.7 % (37.0-47.0); HGB - HEMOGLOBIN 13.5 g/dL (12.0-16.0); LYMPHOCYTES # (AUTO) 1.7 10^3/uL (1.5-3.5); MEAN CORPUSCULAR HEMOGLOBIN 30.3 pg (27.0-31.0); MEAN CORPUSCULAR HGB CONC 32.4 g/dL (32.0-36.0); MEAN CORPUSCULAR VOLUME 93.5 fL (81.0-99.0); MEAN PLATELET VOLUME 9.9 fL (7.9-10.8); MONOCYTES # (AUTO) 1.1 10^3/uL (0.0-1.0); MONOCYTES % (AUTO) 14.3 %; NEUTROPHILS # (AUTO) 4.5 10^3/uL (1.5-6.6); NEUTROPHILS % (AUTO) 59.8 %; PLT - PLATELET COUNT 295 10^3/uL (130-450); RED BLOOD COUNT 4.46 10^6/uL (4.20-5.40); RED CELL DISTRIBUTION WIDTH 14.6 % (12.0-15.0); WHITE BLOOD COUNT 7.6 x10^3/uL (4.8-10.8)
--- NOTE | 2023-08-23 08:28 | XRAY Report ---
PROCEDURE: Chest 1 View X-Ray INDICATIONS: AMS TECHNIQUE: One view of the chest was acquired. COMPARISON: 11/18/2021. FINDINGS: Surgical changes and devices: None. Lungs and pleura: No pleural effusions or pneumothorax. Lungs are clear. Mediastinum: Mediastinal contours appear normal. Heart size is normal. Bones and chest wall: No suspicious bony lesions. Overlying soft tissues appear unremarkable. IMPRESSION: No acute cardiopulmonary process. Reviewed by: Patricio Barrios MD on 08/23/2023 8:26 AM PDT Approved by: Patricio Barrios MD on 08/23/2023 8:26 AM PDT Station ID: [id number]
[2023-08-23 08:34] LABS: ALBUMIN/GLOBULIN RATIO 1.3 (1.0-2.2); BILIRUBIN,TOTAL 0.4 mg/dL (0.2-1.0); CALCIUM 9.4 mg/dL (8.5-10.3); CREATININE 1.1 mg/dL (0.6-1.3); POTASSIUM 3.8 mmol/L (3.5-4.5); TOTAL PROTEIN 7.1 g/dL (6.4-8.9)
[2023-08-23 08:38] LABS: PT - PROTHROMBIN TIME 10.6 secs (9.9-12.6)
--- NOTE | 2023-08-23 09:04 | CT Report ---
PROCEDURE: HEAD WO INDICATIONS: AMS TECHNIQUE: Noncontrast 4.5 mm thick angled axial sections acquired from the foramen magnum to the vertex. For r adiation dose reduction, the following was used: automated exposure control, adjustment of mA and/or kV according to patient size. COMPARISON: 02/21/2021 FINDINGS: Image quality: Excellent. CSF spaces: Basal cisterns are patent. No extra-axial fluid collections. The ventricles are symmet martin in size and shape. Brain: No intracranial bleeds or masses. There is cerebral volume loss for age, with resultant vent ricular and sulcal prominence. There are periventricular and deep white matter chronic small vessel ischemic changes. There is intracranial internal carotid artery atherosclerosis. Skull and face: Calvarium and visualized facial bones appear intact, without suspicious lesions. Sinuses: Visualized sinuses and mastoids are clear. IMPRESSION: 1. No CT evidence of acute intracranial abnormalities. 2. No significant changes from previous study. Reviewed by: Patricio Barrios MD on 08/23/2023 9:03 AM PDT Approved by: Patricio Barrios MD on 08/23/2023 9:03 AM PDT Station ID: [id number]
[2023-08-23 09:10] LABS: BILIRUBIN,URINE NEGATIVE (NEGATIVE); CLARITY,URINE CLEAR (CLEAR); GLUCOSE, URINE (UA) NEGATIVE (NEGATIVE); KETONES,URINE (UA) NEGATIVE (NEGATIVE); LEUKOCYTE ESTERASE, URINE NEGATIVE (NEGATIVE); NITRITE,URINE NEGATIVE (NEGATIVE); OCCULT BLOOD,URINE TRACE-INTA (NEGATIVE); PROTEIN,URINE NEGATIVE (NEGATIVE); UROBILINOGEN,URINE 0.2 (NORMAL) E.U./dL (NORMAL)
[2023-08-23 10:49] VITALS: BP 172/78; O2SAT 100
== END 2023-08-23 10:59 | disposition home or self-care (01) ==
LOC: EDUNIT# → ED 07:55 → SUPCPDRO 07:55 → ED 10:59
DX: G30.9 Alzheimer's disease, unspecified (principal); F02.80 Dementia in other diseases classified elsewhere, unspecified severity, without behavioral disturbance, psychotic disturbance, mood disturbance, and anxiety
CPT/HCPCS: 36415; 80053; 81001; 81003; 85025; 85610; 87086; 93005; 99283; 99284

== ENCOUNTER 2023-10-20 09:06 | Outpatient (CLI) | payer MEDICARE, OTHER | END 2023-10-20 09:07 | disposition short-term general hospital (02) | LOC: EMS 09:06 | DX: R44.1 Visual hallucinations (principal); R06.4 Hyperventilation; R45.89 Other symptoms and signs involving emotional state; Z72.820 Sleep deprivation | CPT/HCPCS: A0425; A0429; A0888 ==

== ENCOUNTER 2024-01-25 08:00 | Outpatient (CLI) | payer MEDICARE, OTHER | END 2024-01-25 23:59 | disposition home or self-care (01) | LOC: PC 08:00 | PROVIDERS: ATTEND Nurse Practitioner Gerontology | DX: Z51.5 Encounter for palliative care (principal); N39.0 Urinary tract infection, site not specified; G47.00 Insomnia, unspecified; R44.2 Other hallucinations; Z65.8 Other specified problems related to psychosocial circumstances | CPT/HCPCS: 99350; G0318; 99417 ==

== ENCOUNTER 2024-02-23 12:02 | Outpatient (CLI) | payer MEDICARE, OTHER | END 2024-02-23 23:59 | disposition home or self-care (01) | LOC: PC 12:02 | PROVIDERS: ATTEND Nurse Practitioner Gerontology | DX: Z51.5 Encounter for palliative care (principal); G30.9 Alzheimer's disease, unspecified; Z65.8 Other specified problems related to psychosocial circumstances; Z91.81 History of falling | CPT/HCPCS: 99310; G0317; 99418 ==

== ENCOUNTER 2024-03-21 08:00 | Outpatient (CLI) | payer MEDICARE, OTHER | END 2024-03-21 23:59 | disposition home or self-care (01) | LOC: PC 08:00 | PROVIDERS: ATTEND Nurse Practitioner Gerontology | DX: Z51.5 Encounter for palliative care (principal); N39.0 Urinary tract infection, site not specified; G30.9 Alzheimer's disease, unspecified; F02.811 Dementia in other diseases classified elsewhere, unspecified severity, with agitation; R44.1 Visual hallucinations; Z91.81 History of falling; Z65.8 Other specified problems related to psychosocial circumstances | CPT/HCPCS: 99350 ==

== ENCOUNTER 2024-04-06 09:30 | Outpatient (CLI) | payer MEDICARE, OTHER | END 2024-04-06 23:59 | disposition home or self-care (01) | LOC: PC 09:30 | PROVIDERS: ATTEND Nurse Practitioner Gerontology | DX: Z51.5 Encounter for palliative care (principal); G30.9 Alzheimer's disease, unspecified; F02.818 Dementia in other diseases classified elsewhere, unspecified severity, with other behavioral disturbance; F02.82 Dementia in other diseases classified elsewhere, unspecified severity, with psychotic disturbance; S51.812D Laceration without foreign body of left forearm, subsequent encounter; W19.XXXD Unspecified fall, subsequent encounter; Z87.440 Personal history of urinary (tract) infections | CPT/HCPCS: 99310; 99349 ==

== ENCOUNTER 2024-05-09 08:00 | Outpatient (CLI) | payer MEDICARE, OTHER | END 2024-05-09 23:59 | disposition home or self-care (01) | LOC: PC 08:00 | PROVIDERS: ATTEND Nurse Practitioner Gerontology | DX: Z51.5 Encounter for palliative care (principal); G30.9 Alzheimer's disease, unspecified; F02.B2 Dementia in other diseases classified elsewhere, moderate, with psychotic disturbance; F01.B2 Vascular dementia, moderate, with psychotic disturbance; G47.00 Insomnia, unspecified; I10 Essential (primary) hypertension; J41.0 Simple chronic bronchitis; Z87.891 Personal history of nicotine dependence; Z71.89 Other specified counseling; Z66 Do not resuscitate; Z79.899 Other long term (current) drug therapy; R06.02 Shortness of breath; G62.9 Polyneuropathy, unspecified; Z91.81 History of falling | CPT/HCPCS: 99350 ==

== ENCOUNTER 2024-06-21 08:00 | Outpatient (CLI) | payer MEDICARE, OTHER | END 2024-06-21 23:59 | disposition home or self-care (01) | LOC: PC 08:00 | PROVIDERS: ATTEND Nurse Practitioner Gerontology | DX: Z51.5 Encounter for palliative care (principal); F01.B11 Vascular dementia, moderate, with agitation; I10 Essential (primary) hypertension; G47.00 Insomnia, unspecified; J44.9 Chronic obstructive pulmonary disease, unspecified; M19.90 Unspecified osteoarthritis, unspecified site; Z71.89 Other specified counseling; Z87.440 Personal history of urinary (tract) infections | CPT/HCPCS: 99349 ==